=== PATIENT | male | born 1990 | race American Indian/Alaskan Native ===

== ENCOUNTER 2017-12-18 12:27 | Inpatient (IN) | payer OTHER ==
--- NOTE | 2017-12-18 13:55 | HP ---
COWS - Scale Resting Pulse: 1= NV 81-100 Sweatin= Chills/Flushing Restless Observation: 1= Difficult to Sit Still Pupil Size: 0= Normal to Room Light Bone or Joint Aches: 1= Mild Discomfort Runny Nose/ Eye Tearin= Nasal Congestion GI Upset > 30mins: 1= Stomach Cramp Tremor Observation: 1= Tremor [place], Not Seen Yawning Observation: 1= 1-2x During Session Anxiety or Irritability: 1=Feels Anxious/Irritable Goose Flesh Skin: 0=Smooth Skin COWS Score: 9 CIWA Score - CIWA Score Nausea/Vomitin-Mild Nausea/No Vomiting Muscle Tremors: 4-Moderate,w/Arms Extend Anxiety: 4-Mod. Anxious/Guarded Agitation: 1-Slight > Activity Paroxysmal Sweats: No Perspiration Orientation: 1-Uncertain about Date Tacttile Disturbances: 1-Very Mild Itch/Numbness Auditory Disturbances: 1-Very Mild Visual Disturbances: 1-Very Mild Sensitivity Headache: 1-Very Mild CIWA-Ar Total Score: 15 Admission ROS S - HPI Chief Complaint: I have to get off these pills to figure out what is going on Allergies/Adverse Reactions: Allergies Allergy/AdvReac Type Severity Reaction Status Date / Time tramadol Allergy Intermediate Swelling Verified 12/18/17 13:30 zolpidem [From Ambien] AdvReac Intermediate sleep Verified 12/18/17 14:31 walking History of Present Illness: 27 yo young man here for detox from prescribed oxycodone, morphine and xanax. According to him and verified by myself with a phone call to his (adopted) mother, patient was misdiagnosed with stage IV brain cancer four months ago. He was put on hospice and heavily medicated - then it was found he did not have brain cancer (brain CT done at [facility] several days ago) and the hospice said they were discharging him and he should go for detox. Noted [facility] [place] showing prescribed meds by palliative Dr. Brasher. Patient also was devastated by the of his girlfriend just prior to his 'diagnosis'. Patient has many neurologic symptoms (blurry vision, hand tremors, tinnitus, memory problems,possible seizure ) but has not yet seen a neurologist - mother said they will do this after he has been detoxed. I also spoke directly with [facility] [place] and Jessica who verified that the above is correct and patient has been been discharged from hospice and detox is recommended at this point. Exam Limitations: Clinical Condition - Ebola screening Have you traveled outside of the country in the last 21 days: No Have you had contact with anyone from an Ebola affected area: No Do you have a fever: No - Review of Systems Constitutional: Loss of Appetite, Changes in sleep EENT: reports: Blurred Vision, Tinnitus Respiratory: reports: No Symptoms reported Cardiac: reports: No Symptoms Reported GI: reports: Constipated : reports: No Symptoms Reported Musculoskeletal: reports: Back Pain Integumentary: reports: No Symptoms Reported Neuro: reports: Headache, Seizure, Tremors Endocrine: reports: No Symptoms Reported Hematology: reports: No Symptoms Reported Psychiatric: reports: Judgement Intact, Mood/Affect Appropiate, Anxious Other Systems: Reviewed and Negative Patient History - Patient Medical History Hx Anemia: Yes (? previously diagnosed ) Hx Asthma: Yes (when young) Hx Chronic Obstructive Pulmonary Disease (COPD): No Hx Cancer: No Hx Cardiac Disorders: Yes (? murmur) Hx Hypertension: No Hx Hypercholesterolemia: No Hx Pacemaker: No HX Cerebrovascular Accident: No Hx Seizures: Yes Hx Diabetes: No Hx Liver Disease: No Hx Genitourinary Disorders: No Hx Sexually Transmitted Disorders: No Hx Renal Disease (ESRD): No Hx Thyroid Disease: Yes (? previously diagnosed) Hx Depression: Yes (in and out of therapy whole life) Hx Suicide Attempt: Yes (5 months ago when girlfriend overdosed (slit arm)) - Patient Surgical History Past Surgical History: No - PPD History Previous Implant?: No Implanted On Prior R Admission?: No PPD to be Administered?: Yes - Reproductive History Patient is a Female of Child Bearing Age (11 -55 yrs old): No (male) - Smoking Cessation Smoking history: Current every day smoker Have you smoked in the past 12 months: Yes Aproximately how many cigarettes per day: 20 Initiated information on smoking cessation: Yes 'Breaking Loose' booklet given: 12/18/17 (give on floor) - Substance & Tx. History Hx Alcohol Use: Yes (social - 1-2x/month) Hx Substance Use: Yes Substance Use Type: Alcohol, Opiates, Tranquilizers - Substances Abused alprazolam Route: Oral Frequency: Daily Amount used: 2mg tid Age of first use: 27 Date of Last Use: 12/17/17 ms contin Route: Oral Frequency: Daily Amount used: 30mg bid Age of first use: 27 Date of Last Use: 12/18/17 oxycodone Route: Oral Frequency: Daily Amount used: 30m tid Age of first use: 27 Date of Last Use: 12/18/17 Family Disease History - Family Disease History Family History: Unable to Obtain (adopted) Admission Physical Exam [facility] - Vital Signs Vital Signs: 141/70 P 86 R 20 T98.9 - Physical General Appearance: Yes: Nourished, Appropriately Dressed, Mild Distress, Obese , Tremorous, Anxious HEENTM: Yes: EOMI, Hearing grossly Normal, Normocephalic, Normal Voice, Pharynx Normal Respiratory: Yes: Normal Breath Sounds, No Respiratory Distress Neck: Yes: No masses,lesions,Nodules, Supple Breast: Yes: Breast Exam Deferred Cardiology: Yes: Regular Rhythm, Regular Rate Abdominal: Yes: Non Tender, Soft Genitourinary: Yes: Frequency Back: Yes: Normal Inspection Musculoskeletal: Yes: full range of Motion, Gait Steady Extremities: Yes: Normal Inspection, Normal Range of Motion, Non-Tender Neurological: Yes: Fully Oriented, Alert, Normal Mood/Affect, Normal Response Integumentary: Yes: Normal Color, Warm Lymphatic: Yes: Within Normal Limits - Diagnostic (1) Opioid dependence with withdrawal Current Visit: Yes Status: Chronic (2) Sedative, hypnotic or anxiolytic dependence with withdrawal, uncomplicated Current Visit: Yes Status: Chronic (3) Nicotine dependence Current Visit: Yes Status: Chronic Qualifiers: Nicotine product type: cigarettes Substance use status: uncomplicated Qualified Code(s): F17.210 - Nicotine dependence, cigarettes, uncomplicated Cleared for Admission [facility] - Detox or Rehab [facility] Level of Care: Medically Managed Detox Regimen/Protocol: Methadone/Valium
[2017-12-18] MEDS ORDERED: MENTHOL/PHENOL 1 EACH UD MM PRN (14:35)
[2017-12-18] MEDS ORDERED: MAGNESIUM HYDROX 2400MG/30ML ORAL SUSPENSION 30 ML CUP PO PRN (14:35)
[2017-12-18] MEDS ORDERED: MAGNESIUM CITRATE 300 ML BOTTLE PO PRN (14:35)
[2017-12-18] MEDS ORDERED: P-EPHED 60MG/TRIPROLIDI 2.5MG TABLET PO PRN (14:35)
[2017-12-18] MEDS ORDERED: ACETAMINOPHEN 325 MG TABLET (FP) PO PRN (14:35)
[2017-12-18] MEDS ORDERED: MAG HYDROX/AL HYDROX/SIMETH 30 ML UNIT-DOSE CUP PO PRN (14:35)
[2017-12-18] MEDS ORDERED: LOPERAMIDE HCL 2 MG CAPSULE PO PRN (14:35)
[2017-12-18] MEDS ORDERED: hydrOXYzine PAMOATE 50 MG CAPSULE (FP) PO PRN (14:35)
[2017-12-18] MEDS ORDERED: IBUPROFEN 400 MG TABLET (FP) PO PRN (14:35)
[2017-12-18] MEDS ORDERED: guaiFENesin/D-METHORPHAN HB 10 ML UNIT-DOSE CUPS PO PRN (14:35)
[2017-12-18] MEDS ORDERED: METHADONE HCL 10 MG TABLET (FOR DETOX USE ONLY) PO ONE ×2 (14:39→23:00)
[2017-12-18] MEDS ORDERED: diazePAM 5 MG TABLET PO PRN (14:39)
[2017-12-18] MEDS ORDERED: diazePAM 5 MG TABLET PO ONE (14:39)
[2017-12-18] MEDS ORDERED: BACLOFEN 10 MG TABLET (FP) PO SCH (14:45)
[2017-12-18] MEDS ORDERED: NICOTINE 21 MG/24 HOURS TOPICAL PATCH TD SCH (14:45)
[2017-12-18 14:49] VITALS: BMI 35.4
[2017-12-18 21:13] VITALS: BP 136/73; PULSE 101; TEMP 97.6
--- NOTE | 2017-12-18 21:57 | DS ---
[facility] Detox Discharge Summary Admission Date: 12/18/17 Discharge Date: 12/18/17 - History Additional Comments: Patient was misdiagnosed with stage IV brain cancer four months ago and the hospice discharged him to be detoxed from narcotics and Xanax. He was put on hospice and heavily medicated - then it was found he did not have brain cancer ( brain CT done at [facility] several days ago) Noted [facility] shows prescribed meds by palliative Dr. Brasher. . Patient has many neurological symptoms (blurry vision, hand tremors, tinnitus, memory problems,possible seizure ) but has not yet seen a neurologist - mother said they will do this after he has been detoxed. [facility] [place] and Jessica verified the above to be correct Pertinent Past History: Prrscription narcotics and xanax dependence - Physical Exam Results Vital Signs: Vital Signs Temperature 97.6 F 12/18/17 16:15 Pulse Rate 101 H 12/18/17 16:15 Respiratory Rate 18 12/18/17 16:15 Blood Pressure 136/73 12/18/17 16:15 O2 Sat by Pulse Oximetry (%) Vital Signs Temperature 97.6 F 12/18/17 16:15 Pulse Rate 101 H 12/18/17 16:15 Respiratory Rate 18 12/18/17 16:15 Blood Pressure 136/73 12/18/17 16:15 O2 Sat by Pulse Oximetry (%) Pertinent Admission Physical Exam Findings: Withdrawal symptoms - Medication Discharge Medications: Ambulatory Orders Baclofen [Lioresal -] 10 mg PO TID 12/18/17 Dexamethasone [Decadron -] 4 mg PO DAILY 12/18/17 Duloxetine HCl [Cymbalta -] 60 mg PO DAILY 12/18/17 levETIRAcetam [Keppra -] 250 mg PO BID 12/18/17 - Diagnosis (1) Memory change Status: Chronic (2) Nicotine dependence Status: Chronic Qualifiers: Nicotine product type: cigarettes Substance use status: uncomplicated Qualified Code(s): F17.210 - Nicotine dependence, cigarettes, uncomplicated (3) Opioid dependence with withdrawal Status: Chronic (4) Sedative, hypnotic or anxiolytic dependence with withdrawal, uncomplicated Status: Chronic (5) Tinnitus Status: Chronic Qualifiers: Laterality: bilateral Qualified Code(s): H93.13 - Tinnitus, bilateral (6) Tremors of nervous system Status: Chronic - AMA Did Patient Leave Against Medical Advice: Yes
[2017-12-18] MEDS ORDERED: diazePAM 5 MG TABLET PO SCH (22:00)
[2017-12-18] MEDS ORDERED: THIAMINE HCL 100 MG TABLET (FP) PO SCH (22:00)
[2017-12-18] MEDS ORDERED: levETIRAcetam 250 MG TABLET (FP) PO SCH (22:00)
[2017-12-18] MEDS ORDERED: MELATONIN 5 MG TABLETS PO PRN (22:00)
[2017-12-18 22:22] LABS: URINE APPEARANCE CLEAR; URINE BILIRUBIN NEGATIVE (<2.0 mg/dL); URINE COLOR YELLOW; URINE GLUCOSE (UA) NEGATIVE (NEGATIVE); URINE KETONE NEGATIVE (NEGATIVE); URINE LEUK ESTERASE NEGATIVE (NEGATIVE); URINE NITRITE NEGATIVE (NEGATIVE); URINE PROTEIN NEGATIVE (NEGATIVE); URINE UROBILINOGEN NEGATIVE mg/dL (0.2-1.0)
--- NOTE | 2017-12-19 08:55 | EKG ---
Test Reason : Blood Pressure : / mmHG Vent. Rate : 071 BPM Atrial Rate : 071 BPM P-R Int : 138 ms QRS Dur : 092 ms QT Int : 364 ms P-R-T Axes : 029 -25 025 degrees QTc Int : 395 ms SINUS RHYTHM WITH PREMATURE ATRIAL COMPLEXES OTHERWISE NORMAL ECG NO PREVIOUS ECGS AVAILABLE Confirmed by SARAH TAVAREZ, AUGUSTO ([id number]) on 12/19/2017 8:54:57 AM Referred By: Veronica Brower Confirmed By:AUGUSTO SMITH MD
[2017-12-19] MEDS ORDERED: DEXAMETHASONE 4 MG TABLET (FP) PO SCH (10:00)
[2017-12-19] MEDS ORDERED: METHADONE HCL 10 MG TABLET (FOR DETOX USE ONLY) PO SCH (10:00)
[2017-12-19] MEDS ORDERED: PRENATAL VITAMINS W/ FOLIC ACID TABLET (FP) PO SCH (10:00)
[2017-12-19] MEDS ORDERED: DULoxetine HCL 60 MG CAPSULE.DR PO SCH (10:00)
[2017-12-20] MEDS ORDERED: diazePAM 5 MG TABLET PO SCH (10:00)
[2017-12-20] MEDS ORDERED: METHADONE HCL 5 MG TABLET (FOR DETOX USE ONLY) PO SCH (10:00)
[2017-12-22] MEDS ORDERED: METHADONE HCL 10 MG TABLET (FOR DETOX USE ONLY) PO SCH (10:00)
[2017-12-22] MEDS ORDERED: diazePAM 5 MG TABLET PO SCH (10:00)
[2017-12-23] MEDS ORDERED: METHADONE HCL 5 MG TABLET (FOR DETOX USE ONLY) PO SCH (06:00)
== END 2017-12-18 21:19 | disposition left against medical advice (07) | DRG 770 ==
LOC: YASAS 12:27 → Y3N 14:43
PROVIDERS: ADMIT Surgery; ATTEND Surgery
PROC: HZ2ZZZZ Detoxification Services for Substance Abuse Treatment (ICD-10-PCS; principal; 2017-12-18)
DX: F11.23 Opioid dependence with withdrawal (principal); F13.230 Sedative, hypnotic or anxiolytic dependence with withdrawal, uncomplicated; F17.210 Nicotine dependence, cigarettes, uncomplicated; H93.13 Tinnitus, bilateral; R25.1 Tremor, unspecified; R41.3 Other amnesia; Z88.8 Allergy status to other drugs, medicaments and biological substances
CPT/HCPCS: 81003; 93005; 93010; J0475